=== PATIENT | female | born 1985 | race Two or more races ===

== ENCOUNTER 2021-08-16 17:00 | Emergency (ER) | payer MEDICAID ==
[~2021-08-16] VITALS: Ht 154.9 cm; Wt 63.5 kg
[2021-08-16 17:08] VITALS: BP 131/85
[2021-08-16] MEDS ORDERED: ACETAMINOPHEN 500 MG TAB PO ONE (21:00)
[2021-08-16] MEDS ORDERED: IBUPROFEN 800 MG TAB PO ONE (21:00)
[2021-08-16] MEDS ORDERED: BACLOFEN 10 MG TAB PO ONE (21:00)
== END 2021-08-16 21:06 | disposition home or self-care (01) ==
LOC: ER 17:00
DX: S13.9XXA Sprain of joints and ligaments of unspecified parts of neck, initial encounter (principal); M62.838 Other muscle spasm; X58.XXXA Exposure to other specified factors, initial encounter; Y93.89 Activity, other specified; Y92.89 Other specified places as the place of occurrence of the external cause; Y99.8 Other external cause status
CPT/HCPCS: 72040

== ENCOUNTER 2025-06-06 16:11 | Emergency (ER) | payer MEDICAID ==
[~2025-06-06] VITALS: Ht 167.6 cm; Wt 66.6 kg
[~2025-06-06 16:11] MED LIST: IBUP-1454 PO; LEVO750T8 PO; ZOFR4T PO
[2025-06-06] MEDS: HYDROcodone-ACET 10/325MG TAB PO ONE (17:42)
[2025-06-06] MEDS: KETOROLAC TROMETH 60MG/2ML VIAL IM ONE (17:42)
[2025-06-06 17:48] VITALS: BP 143/71; TEMP 97.8
[2025-06-06 17:49] VITALS: PULSE 61; RESP 18; O2SAT 99
--- NOTE | 2025-06-06 18:06 | DVH ---
EXAM: XY LUMBAR SPINE 3 VIEW HISTORY: Back pain COMPARISON: None TECHNIQUE: AP and lateral views of the lumbar spine and spot lateral of the lumbosacral junction were performed. FINDINGS: There are 5 [id number] lumbar type vertebral bodies. The pedicles are intact. Sacroiliac joint s are maintained. Vertebral body heights are maintained. Alignment is preserved. There is no acute f racture. IUD is partially imaged. Overlying soft tissues are intact. The visualized bowel gas is no nobstructed. IMPRESSION: 1. No acute fracture or traumatic malalignment.
[2025-06-06] MEDS ORDERED: CYCL-839 PO (18:36)
[2025-06-06] MEDS ORDERED: HYDR-4902 PO (18:36)
[2025-06-06] MEDS ORDERED: IBUP-1455 PO (18:36)
--- NOTE | 2025-06-06 18:37 | ED.PDOC ---
History of Present Illness HPI Comments This patient is a pleasant 40-year-old female who arrives to the ED today with complaints of left hip pain that radiates down her left lateral and anterior thigh for the past 7-10 days. Patient denies any definitive traumatic event. Patient denies any history of low back concerns or musculoskeletal concerns. Patient states the pain is sharp and radiates between her back and her hip and thigh. Patient denies any fever nausea or vomiting. Vital signs were stable. Chief Complaint: Lower Extremity Time Seen by MD: 16:13 Reviewed Notes: Nurses Notes Allergies: Coded Allergies: NO KNOWN ALLERGIES (Unverified , 08/16/21) Home Meds Active Scripts Ibuprofen (Ibuprofen) 600 Mg Tab, 1 TAB PO Q6HP PRN, #20 TAB Prov:TRENT JOSEPH [facility] 11/16/23 Ondansetron Odt 4MG Tab (ZOFRAN PO) 4 Mg Tb, 4 MG PO Q6HP PRN, #15 TAB ODT TAB-DISSOLVE IN MOUTH, THEN SWALLOW Prov:TRENT JOSEPH [facility] 11/16/23 Levofloxacin (Levaquin 750 mg) 750 Mg Tab, 1 TAB PO DAILY for 9 Days, #9 TAB Prov:TRENT JOSEPH [facility] 11/16/23 Information Source: Patient, Friend Mode of Arrival: Ambulatory Severity: Moderate Timing: Days Duration: Since onset Prehospital treatment: Pain Meds Past Medical History PAST MEDICAL HISTORY: Denies Surgical History: Denies all surgeries STAIN WIPER History: No Pertinent STAIN WIPER History Family History Family History: Reviewed,noncontributory to illness, No family hx of Cancer, No family hx of DM, No family hx of Heart nevaeh, No family hx of HTN, No family hx ofKidney nevaeh, No family hx of Liver nevaeh, No family hx of Lung nevaeh, No family hx of Stroke Social History Smoker: Non-Smoker Alcohol: Denies ETOH Use Drugs: Denies Drug Use Lives In: Home Constitutional: denies: chills, diaphoresis, fatigue, fever, malaise, sweats, weakness, others EENTM: denies: blurred vision, double vision, ear bleeding, ear discharge, ear drainage, ear pain, ear ringing, eye pain, eye redness, hearing loss, mouth pain, mouth swelling, nasal discharge, nose bleeding, nose congestion, nose pain, photophobia, tearing, throat pain, throat swelling, voice changes, others Respiratory: denies: cough, hemoptysis, orthopnea, SOB at rest, shortness of breath, SOB with excertion, stridor, wheezing, others Cardiovascular: denies: chest pain, dizzy spells, diaphoresis, Dyspnea on exertion, edema, irregular heart beat, left arm pain, lightheadedness, palpitations, PND, syncope, others Gastrointestinal: denies: abdomen distended, abdominal pain, blood streaked bowels, constipated, diarrhea, dysphagia, difficulty swallowing, hematemesis, melena, nausea, poor appetite, poor fluid intake, rectal bleeding, rectal pain, vomiting, others Genitourinary: denies: abnormal vagina bleeding, burning, dyspareunia, dysuria, flank pain, frequency, hematuria, incontinence, pain, , vagina discharge, urgency, others Neurological: denies: dizziness, fainting, headache, left sided numbness, left sided weakness, numbness, paresthesia, pre-existing deficit, right sided numbness, right sided weakness, seizure, speech problems, tingling, tremors, weakness, others Musculoskeletal: reports: others (Left-sided low back pain radiating into left hip and left thigh); denies: back pain, gout, joint pain, joint swelling, muscle pain, muscle stiffness, neck pain Integumetry: denies: bruises, change in color, change in hair/nails, dryness, laceration, lesions, lumps, rash, wounds, others Allergic/Immunocompromised: denies: Difficulty Healing, Frequent Infections, Hives, Itching, others Hematologic/Lymphatic: denies: anemia, blood clots, easy bleeding, easy bruising, swollen glands, others Endocrine: denies: excessive hunger, excessive sweating, excessive thirst, excessive urination, flushing, intolerance to cold, intolerance to heat, unexplained weight gain, unexplained weight loss, others Psychiatric: denies: anxiety, bipolar disorder, depression, hopeless, panic disorder, schizophrenia, sleepless, suicidal, others Physical Exam General Appearance: Moderate Distress (Due to back and leg pain concerns.), Normal HEENT: Normal ENT Inspection, Pharynx Normal, TMs Normal Neck: Full Range of Motion, Non-Tender, Normal, Normal Inspection Respiratory: Chest Non-Tender, Lungs Clear, No Accessory Muscle Use, No Respiratory Distress, Normal Breath Sounds Cardiovascular: No Edema, No JVD, No Murmur, No Gallop, Normal Peripheral Pulses, Regular Rate/Rhythm Breast Exam: Deferred Gastrointestinal: No Organomegaly, Non Tender, No Pulsatile Mass, Normal Bowel Sounds, Soft Genitalia: Deferred Pelvic: Deferred Rectal: Deferred Extremities: Other (Unremarkable evaluation of lower back, left hip and left thigh concerns. No edema or ecchymosis. No signs of trauma. Mild reduced range of motion and lower back.) Neurologic: Alert Cerebellar Function: NOT DONE Reflexes: NOT DONE Skin: Dry, Normal Color, Warm Lymphatic: No Adenopathy Was a procedure done? Was a procedure done?: No Differential Dx Considerations may include: Degenerative disc disease of the lumbar spine, lumbar radiculopathy, radiculopathy, muscle strain X-Ray, Labs, Meds, VS Vital Signs Date Time Temp Pulse Resp B/P (MAP) Pulse Ox O2 Delivery O2 Flow Rate FiO2 06/06/25 17:49 61 18 99 Room Air* 0 21 06/06/25 17:48 97.8 61 18 143/71 (95) 99 97.8 06/06/25 16:12 98.0 72 16 143/89 97 98.0 Current Medications Medications (Trade) Dose Ordered Sig/Elaina Route Start Time Stop Time Status Last Admin Ketorolac Tromethamine (Toradol Injection) 30 mg ONCE ONCE IM 06/06/25 16:45 06/06/25 16:46 DC 06/06/25 17:42 Acetaminophen/ Hydrocodone Bitart ([place]urmont 10/325MG Tab) 1 tab ONCE ONCE PO 06/06/25 16:45 06/06/25 16:46 DC 06/06/25 17:42 X-Ray, Labs, Meds, VS Comment All studies performed in the ED were evaluated by me personally. Imaging studies were unremarkable for any definitive degenerative disc disease. Based on patient presentation, the patient is suffering from a muscle strain or a radiculopathy. Advised patient utilize pain medications as needed as well as ice therapy. If symptoms continue, patient will need to follow up with the primary care provider for continued evaluation and management. Time of 1ST Reevaluation: 18:34 Reevaluation 1ST: Improved Consultation: PCP Patient Education/Counseling: Diagnosis, Treatment Family Education/Counseling: Diagnosis, Treatment SEPSIS Sepsis Screen Date sepsis recognized/suspect: Jun 06, 2025 Time Sepsis recognized/suspect: 1611 Recent Procedure: No On Antibiotic Therapy: No Respiratory Rate >20: No Heart Rate >90: No Temp<36 C (96.8 F) or >38.3 C: No SBP <90 or MAP <65 mmHG: No New Acute Mental Status Change: No Is the patient on CPAP, BIPAP,: No Physician Orders Lumbar Spine 3 View (06/06/25 16:34) Vital Signs Date Time Temp Pulse Resp B/P (MAP) Pulse Ox O2 Delivery O2 Flow Rate FiO2 06/06/25 17:49 61 18 99 Room Air* 0 21 06/06/25 17:48 97.8 61 18 143/71 (95) 99 97.8 06/06/25 16:12 98.0 72 16 143/89 97 98.0 Medications Medications Dose Ordered Sig/Elaina Route Start Time Stop Time Status Last Admin Dose Admin Acetaminophen/ Hydrocodone Bitart 1 tab ONCE ONCE PO 06/06/25 16:45 06/06/25 16:46 DC 06/06/25 17:42 Ketorolac Tromethamine 30 mg ONCE ONCE IM 06/06/25 16:45 06/06/25 16:46 DC 06/06/25 17:42 Departure 1 Departure Time of Disposition: 18:35 Impression: Primary Impression: Low back strain Additional Impression: Lumbar radiculopathy Disposition: HOME / SELF CARE / HOMELESS Condition: Stable Additional Instructions: Advised pain medication as needed for symptomatic relief as well as ice therapy. If symptoms continue for more than another few days, patient will need to follow up with the primary care provider for continued evaluation and management. e-Prescriptions Cyclobenzaprine Hcl (Cyclobenzaprine Hcl) 10 Mg Tab 10 MG PO Q8HP PRN, #12 TAB Prov: TRENT JOSEPH [facility] 06/06/25 Hydrocodone-Acetaminophen (Hydrocodone Bitartrate/AC 5-325 mg) 1 Tab Tab 1 TAB PO Q6HP PRN, #15 TAB Prov: TRENT JOSEPH [facility] 06/06/25 Ibuprofen Micronized (Ibuprofen) 800 Mg Tab 800 MG PO Q8HP PRN, #30 TAB Prov: TRENT JOSEPH [facility] 06/06/25 Discharged With: Self, Friend Critical Care Note Critical Care Time?: No Stability Stability form required: No Heart Score Heart Score: Heart Score Response (Comments) Value History N/A 0 EKG N/A 0 Age N/A 0 Risk Factors N/A 0 Troponin N/A 0 Total 0 TRENT JOSEPH PAC Jun 06, 2025 18:37
== END 2025-06-06 20:08 | disposition home or self-care (01) ==
LOC: ER 16:11
DX: S39.012A Strain of muscle, fascia and tendon of lower back, initial encounter (principal); M54.16 Radiculopathy, lumbar region; X58.XXXA Exposure to other specified factors, initial encounter; Y93.89 Activity, other specified; Y92.89 Other specified places as the place of occurrence of the external cause; Y99.8 Other external cause status
CPT/HCPCS: 72100; 96372; 99283; J1885

== ENCOUNTER 2025-06-30 15:26 | Inpatient (IN) | payer MEDICAID ==
[~2025-06-30] VITALS: Ht 157.5 cm; Wt 64.8 kg
[~2025-06-30 15:26] MED LIST changes: +CYCL-839 PO; +HYDR-4902 PO; +IBUP-1455 PO
--- NOTE | 2025-06-30 16:28 | ED.PDOC ---
GI ASSESSMENT HPI Comments This is a 40 year old female presenting to the ED with chief complaint of N/V. Patient reports that she has been experiencing a fever with associated nausea, vomiting, headache, and leg weakness since Saturday. Patient relays that she has been told in the past she has anemia. Patient denies any chest pain, SOB, dizziness, diarrhea, abdominal pain, melena, hematemesis, or vaginal bleeding. Chief Complaint: Nausea/Vomiting Time Seen by MD: 16:26 Reviewed Notes: Nurses Notes, Medications, Allergies Allergies: Coded Allergies: NO KNOWN ALLERGIES (Unverified , 08/16/21) Home Meds Active Scripts Cyclobenzaprine Hcl (Cyclobenzaprine Hcl) 10 Mg Tab, 10 MG PO Q8HP PRN, #12 TAB Prov:TRENT JOSEPH [facility] 06/06/25 Hydrocodone-Acetaminophen (Hydrocodone Bitartrate/AC 5-325 mg) 1 Tab Tab, 1 TAB PO Q6HP PRN, #15 TAB Prov:TRENT JOSEPH [facility] 06/06/25 Ibuprofen Micronized (Ibuprofen) 800 Mg Tab, 800 MG PO Q8HP PRN, #30 TAB Prov:TRENT JOSEPH [facility] 06/06/25 Ibuprofen (Ibuprofen) 600 Mg Tab, 1 TAB PO Q6HP PRN, #20 TAB Prov:TRENT JOSEPH [facility] 11/16/23 Ondansetron Odt 4MG Tab (ZOFRAN PO) 4 Mg Tb, 4 MG PO Q6HP PRN, #15 TAB ODT TAB-DISSOLVE IN MOUTH, THEN SWALLOW Prov:TRENT JOSEPH [facility] 11/16/23 Levofloxacin (Levaquin 750 mg) 750 Mg Tab, 1 TAB PO DAILY for 9 Days, #9 TAB Prov:TRENT JOSEPH [facility] 11/16/23 Information Source: Patient Mode of Arrival: Ambulatory Timing: Days Duration: Since onset Prehospital treatment: None Vomitus: Watery Stool: Normal Severity: Moderate Recent: None Recent Hx of: None Pain Location: None Modifying Factors: Nothing Associated sign and symptoms: Nausea, Vomiting, Fever Past Medical History PAST MEDICAL HISTORY: Denies Surgical History: Denies all surgeries APARTMENT ASSISTANT MANAGER History: No Pertinent APARTMENT ASSISTANT MANAGER History Family History Family History: Reviewed,noncontributory to illness, Family hx of Cancer Social History Smoker: Non-Smoker Alcohol: Denies ETOH Use Drugs: Denies Drug Use Lives In: Home Constitutional: reports: fever, weakness; denies: chills, diaphoresis, fatigue, malaise, sweats, others EENTM: denies: blurred vision, double vision, ear bleeding, ear discharge, ear drainage, ear pain, ear ringing, eye pain, eye redness, hearing loss, mouth pain, mouth swelling, nasal discharge, nose bleeding, nose congestion, nose pain, photophobia, tearing, throat pain, throat swelling, voice changes, others Respiratory: denies: cough, hemoptysis, orthopnea, SOB at rest, shortness of breath, SOB with excertion, stridor, wheezing, others Cardiovascular: denies: chest pain, dizzy spells, diaphoresis, Dyspnea on exertion, edema, irregular heart beat, left arm pain, lightheadedness, palpitations, PND, syncope, others Gastrointestinal: reports: nausea, vomiting; denies: abdomen distended, abdominal pain, blood streaked bowels, constipated, diarrhea, dysphagia, difficulty swallowing, hematemesis, melena, poor appetite, poor fluid intake, rectal bleeding, rectal pain, others Genitourinary: denies: abnormal vagina bleeding, burning, dyspareunia, dysuria, flank pain, frequency, hematuria, incontinence, pain, , vagina discharge, urgency, others Neurological: reports: headache; denies: dizziness, fainting, left sided numbness, left sided weakness, numbness, paresthesia, pre-existing deficit, right sided numbness, right sided weakness, seizure, speech problems, tingling, tremors, weakness, others Musculoskeletal: denies: back pain, gout, joint pain, joint swelling, muscle pain, muscle stiffness, neck pain, others Integumetry: denies: bruises, change in color, change in hair/nails, dryness, laceration, lesions, lumps, rash, wounds, others Allergic/Immunocompromised: denies: Difficulty Healing, Frequent Infections, Hives, Itching, others Hematologic/Lymphatic: denies: anemia, blood clots, easy bleeding, easy bruising, swollen glands, others Endocrine: denies: excessive hunger, excessive sweating, excessive thirst, excessive urination, flushing, intolerance to cold, intolerance to heat, unexplained weight gain, unexplained weight loss, others Psychiatric: denies: anxiety, bipolar disorder, depression, hopeless, panic disorder, schizophrenia, sleepless, suicidal, others All Other Systems: Reviewed and Negative Physical Exam General Appearance: Moderate Distress HEENT: Pale Conjuntivae (L), Pale Conjuntivae (R), Pharynx Normal, TMs Normal Neck: Full Range of Motion, Non-Tender, Normal, Normal Inspection Respiratory: Chest Non-Tender, Lungs Clear, No Accessory Muscle Use, No Respiratory Distress, Normal Breath Sounds Cardiovascular: No Edema, No JVD, No Murmur, No Gallop, Normal Peripheral Pulses, Regular Rate/Rhythm Breast Exam: Deferred Gastrointestinal: No Organomegaly, Non Tender, No Pulsatile Mass, Normal Bowel Sounds, Soft Genitalia: Deferred Pelvic: Deferred Rectal: Deferred Extremities: No calf tenderness, Normal capillary refill, No pedal edema Musculoskeletal : Apperance: Normal Neurologic: Alert, powerplant operator II-XII nml as Tested, Motor Weakness, Normal Affect, No rmal Mood, No Sensory Deficits Cerebellar Function: Normal Reflexes: Normal Skin: Dry, Pallor, Warm Lymphatic: No Adenopathy Was a procedure done? Was a procedure done?: No GI differential Dx Differential Diagnosis: Gastritis/PUD, Gastroenteritis, Viral, Anemia X-Ray, Labs, Meds, VS Vital Signs Date Time Temp Pulse Resp B/P (MAP) Pulse Ox O2 Delivery O2 Flow Rate FiO2 06/30/25 15:27 97.8 72 20 101/73 100 97.8 Lab Test 06/30/25 17:00 Range/Units White Blood Count 12.9 H 4.4-10.8 10^3/uL Red Blood Count 4.27 4.0-5.20 10^6/uL Hemoglobin 10.8 L 12.2-16.2 g/dL Hematocrit 32.9 L 36.0-46.0 % Mean Corpuscular Volume 76.9 L 80.0-100.0 fL Mean Corpuscular Hemoglobin 25.2 L 28.0-32.0 pg Mean Corpuscular Hemoglobin Concent 32.8 32.0-36.0 g/dL Red Cell Distribution Width 16.9 H 11.8-14.3 % Platelet Count 322 140-450 10^3/uL Mean Platelet Volume 8.6 6.9-10.8 fL Neutrophils (%) (Auto) 74.8 37.0-80.0 % Lymphocytes (%) (Auto) 7.8 L 10.0-50.0 % Monocytes (%) (Auto) 17.1 H 0.0-12.0 % Eosinophils (%) (Auto) 0.0 0.0-7.0 % Basophils (%) (Auto) 0.3 0.0-2.0 % Neutrophils # (Auto) 9.7 H 1.6-8.6 10 ^3/uL Lymphocytes # (Auto) 1.0 0.4-5.4 10 ^3/uL Monocytes # (Auto) 2.2 H 0-1.3 10 ^3/uL Eosinophils # (Auto) 0 0-0.8 10 ^3/uL Basophils # (Auto) 0 0-0.2 10 ^3/uL Nucleated Red Blood Cells 0.0 % Sodium Level 132 L 136-145 mmol/L Potassium Level 3.3 L 3.5-5.1 mmol/L Chloride Level 95 L 98-107 mmol/L Carbon Dioxide Level 27 20-31 mmol/L Anion Gap 10 5-15 Blood Urea Nitrogen 9 9-23 mg/dL Creatinine 0.88 0.550-1.02 mg/dL Glomerular Filtration Rate Calc 86 >90 mL/min BUN/Creatinine Ratio 10.2 10.0-20.0 Serum Glucose 117 H 74-106 mg/dL Lactic Acid Level 1.1 0.4-2.0 mmol/L Calcium Level 8.5 L 8.7-10.4 mg/dL Current Medications Medications (Trade) Dose Ordered Sig/Elaina Route Start Time Stop Time Status Last Admin Sodium Chloride 500 ml @ 500 mls/hr Q1H ONCE IV 06/30/25 16:30 06/30/25 17:29 DC 06/30/25 17:54 The patient had normal saline at a 500 cc bolus. The patient's lactic acid level is within normal limits The hemoglobin is 10.8 hematocrit 329 the rest of the CBC is within normal limits The chemistry panel shows hypokalemia and hyponatremia The patient is being admitted at this time At this time the patient is being admitted the hospitalist Images Reviewed?: Images reviewed and evaluated by me Time of 1ST Reevaluation: 19:28 Reevaluation 1ST: Unchanged Patient Education/Counseling: Diagnosis, Treatment, Prognosis Family Education/Counseling: No Family Present SEPSIS Sepsis Screen Date sepsis recognized/suspect: Jun 30, 2025 Time Sepsis recognized/suspect: 1529 Recent Procedure: No On Antibiotic Therapy: No Respiratory Rate >20: No Heart Rate >90: No Temp<36 C (96.8 F) or >38.3 C: No SBP <90 or MAP <65 mmHG: No New Acute Mental Status Change: No Is the patient on CPAP, BIPAP,: No Physician Orders Urinalysis (06/30/25 16:26) Heplock Iv (06/30/25 16:26) Technical Project Lead (06/30/25 16:) Blood Pressure (06/30/25 16:) Pulse Oximetry (06/30/25 16:) Electrocardigram (06/30/25 16:) Blood Culture (06/30/25 16:) Vital Signs Date Time Temp Pulse Resp B/P (MAP) Pulse Ox O2 Delivery O2 Flow Rate FiO2 06/30/25 15:27 97.8 72 20 101/73 100 97.8 Laboratory Tests Test 06/30/25 17:00 Lactic Acid Level 1.1 mmol/L (0.4-2.0) White Blood Count 12.9 10^3/uL (4.4-10.8) H Medications Medications Dose Ordered Sig/Elaina Route Start Time Stop Time Status Last Admin Dose Admin Sodium Chloride 500 ml @ 500 mls/hr Q1H ONCE IV 06/30/25 16:30 06/30/25 17:29 DC 06/30/25 17:54 Departure 1 Departure Time of Disposition: 19:29 Impression: Primary Impression: Autonomic dysfunction Additional Impressions: Generalized weakness Hyponatremia Hypokalemia Disposition: ADMITTED INPATIENT Admit to: Med Surg Condition: Fair Critical Care Note Critical Care Time?: No Stability Stability form required: Yes Unstable for transfer: ED Physician Assesment (Clinical assesment) Heart Score Heart Score: Heart Score Response (Comments) Value History N/A 0 EKG N/A 0 Age N/A 0 Risk Factors N/A 0 Troponin N/A 0 Total 0 I personally scribed for JERI HARMAN MD ([email or web address]) on 06/30/25 at 16:28. Electronically submitted by Jersey Singh ([email or web address]). JERI HARMAN MD Jun 30, 2025 16:28
[2025-06-30 17:42] LABS: Hematocrit 32.9 % (36.0-46.0); Hemoglobin 10.8 g/dL (12.2-16.2); Mean Corpuscular Hemoglobin 25.2 pg (28.0-32.0); Mean Corpuscular Volume 76.9 fL (80.0-100.0); Nucleated Red Blood Cells % 0.0 %
[2025-06-30 17:48] LABS: Anion Gap 10 (5-15); Carbon Dioxide 27 mmol/L (20-31)
[2025-06-30 17:53] LABS: BUN/Creatinine Ratio 10.2 (10.0-20.0); Blood Urea Nitrogen 9 mg/dL (9-23)
[2025-06-30] MEDS: SODIUM CHLORIDE 0.9% 500 ML IV ONE (17:54)
[2025-06-30 17:55] LABS: Calcium 8.5 mg/dL (8.7-10.4); Chloride 95 mmol/L (98-107); Glucose 117 mg/dL (74-106); Potassium 3.3 mmol/L (3.5-5.1); Sodium 132 mmol/L (136-145)
[2025-06-30] MEDS ORDERED: TEMAZEPAM 15 MG CAP PO PRN (20:15)
[2025-06-30] MEDS ORDERED: HYDROcodone-ACET 5/325MG TAB PO PRN (20:15)
[2025-06-30] MEDS ORDERED: ONDANSETRON HCL 4 MG/2 ML VIAL IV PRN (20:15)
--- NOTE | 2025-06-30 21:17 | DVH ---
EXAM: CT CT AB PEL WO CON-NO ORAL OR IV INDICATION: intract nausea and vomiting TECHNIQUE: Volumetric multidetector CT images of the abdomen and pelvis were obtained without contras t. All CT scans at this facility use dose modulation, iterative reconstruction, and/or weight based d osing when appropriate to reduce radiation dose to as low as reasonably achievable. COMPARISON: None FINDINGS: [LOWER CHEST]: The partially visualized lung bases are clear without a pleural effusion. The cardiac size is normal without pericardial effusion. [LIVER]: Normal hepatic size without suspicious focal lesion. [GALLBLADDER AND BILIARY TREE]: No cholelithiasis. [SPLEEN]: Unremarkable. [PANCREAS]: Unremarkable. [ADRENAL GLANDS]: Unremarkable [KIDNEYS]: No hydronephrosis. No nephroureterolithiasis. Perinephric edema of the right kidney edema of the inferior aspect right kidney/retroperitoneum [BLADDER]: Unremarkable for the degree distention. [REPRODUCTIVE ORGANS]: IUD in place [BOWEL/MESENTERY]: Stomach is normal. No CT evidence of bowel obstruction. [id number] stool bur den. [ASCITES]: Absent [LYMPHADENOPATHY]: No pathologically enlarged lymph nodes by CT size criteria [VASCULATURE]: No aneurysmal dilatation. [ABDOMINAL WALL]: Unremarkable. [MUSCULOSKELETAL]: No acute fracture or aggressive focal osseous lesion. 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 IMPRESSION: 1. No CT evidence of bowel obstruction. 2. [id number] stool burden. 3. Perinephric edema of the right kidney edema of the inferior aspect right kidney/retroperitoneum. 4. Correlate with urinalysis to exclude pyelonephritis. Alternatively correlate for recently passed s tone.
[2025-06-30 22:15] LABS: Urine Amorphous Crystal FEW /hpf (None Seen); Urine Protein, UAD TRACE (Negative)
[2025-06-30 22:28] LABS: Amphetamine Screen, Urine Neg (NEGATIVE); Barbiturate Scree,Urine Neg (NEGATIVE); Benzodiazephine Screen, Urine Neg (NEGATIVE); Cannabinoid Screen, Urine Neg (NEGATIVE); Cocaine Screen, Urine Neg (NEGATIVE); Opiate Scree,Urine Neg (NEGATIVE); Phencyclidine Screen, Urine Neg (NEGATIVE)
--- NOTE | 2025-06-30 22:29 | DVHHP2 ---
Admitting Diagnosis: Nausea and vomiting History of Present Illness 40 yo female patient with hx of anemia c/o nausea and vomiting with associated fever, PETERSON, and leg weakness x 5 days. While in the emergency department the patient was evaluated by the provider, As per provider: Labs, vital signs, and imagining monitored. Patient will be admitted for further evaluation and treatment. I discussed admission with the patient/family and is in agreement to treatment plan. Allergies: Coded Allergies: NO KNOWN ALLERGIES (Unverified , 08/16/21) Home Meds Active Scripts Cyclobenzaprine Hcl (Cyclobenzaprine Hcl) 10 Mg Tab, 10 MG PO Q8HP PRN, #12 TAB Prov:TRENT JOSEPH PAC 06/06/25 Hydrocodone-Acetaminophen (Hydrocodone Bitartrate/AC 5-325 mg) 1 Tab Tab, 1 TAB PO Q6HP PRN, #15 TAB Prov:TRENT JOSEPH PAC 06/06/25 Ibuprofen Micronized (Ibuprofen) 800 Mg Tab, 800 MG PO Q8HP PRN, #30 TAB Prov:TRENT JOSEPH PAC 06/06/25 Ibuprofen (Ibuprofen) 600 Mg Tab, 1 TAB PO Q6HP PRN, #20 TAB Prov:TRENT JOSEPH PAC 11/16/23 Ondansetron Odt 4MG Tab (ZOFRAN PO) 4 Mg Tb, 4 MG PO Q6HP PRN, #15 TAB ODT TAB-DISSOLVE IN MOUTH, THEN SWALLOW Prov:TRENT JOSEPH PAC 11/16/23 Levofloxacin (Levaquin 750 mg) 750 Mg Tab, 1 TAB PO DAILY for 9 Days, #9 TAB Prov:TRENT JOSEPH PAC 11/16/23 Current Medications Current Medications Medications (Trade) Dose Ordered Sig/Elaina Route PRN Reason Start Time Stop Time Status Last Admin Sodium Chloride 1,000 ml @ 120 mls/hr Q8H20M IV 06/30/25 20:15 UNV Acetaminophen/ Hydrocodone Bitart ([place] 5/325MG Tab) 1 tab Q4HP PRN PO MODERATE PAIN (4-6 PAIN SCALE) 06/30/25 20:15 UNV Temazepam (Restoril) 15 mg QHSP PRN PO FOR INSOMNIA 06/30/25 20:15 UNV Ondansetron HCl (Zofran) 4 mg Q4HP PRN IV NAUSEA / VOMITING 06/30/25 20:15 UNV Acetaminophen (Tylenol Tablet) 650 mg Q6HP PRN PO PAIN SCALE 1-3 OR TEMP>100.4 06/30/25 20:15 UNV Ceftriaxone Sodium 50 ml @ 100 mls/hr DAILY IV 06/30/25 20:15 UNV Review of Systems Constitutional: denies chills, denies fever, denies malaise Eyes: denies eye pain, denies vision change ENT: denies ear pain, denies headache, denies nasal congestion, denies painful swallowing, denies voice change Cardiovascular: denies chest pain, denies edema, denies orthopnea, denies palpitations, denies paroxysmal nocturnal dyspnea Respiratory: denies cough, denies shortness of breath Gastrointestinal: denies constipation, denies diarrhea, denies nausea, denies vomiting Genitourinary: denies dysuria, denies frequent urination, denies urethral discharge Musculoskeletal: denies back pain, denies joint pain, denies muscle pain Skin: denies bruising, denies itching, denies rash Neurological: denies focal weakness, denies headache, denies sensory changes Psychiatric: denies anxiety, denies depression Endocrine: denies polydipsia, denies polyuria Hematologic/Lymphatic: denies easy bleeding, denies easy bruising, denies enlarged lymph nodes Allergic/Immunologic: denies allergy, denies hives Vital Signs Vital Signs Date Time Temp Pulse Resp B/P (MAP) Pulse Ox O2 Delivery O2 Flow Rate FiO2 06/30/25 15:27 97.8 72 20 101/73 100 97.8 Physical Exam General Appearance: alert, no distress HEENT: EOMI, PERRLA, normal external inspect of ears, no icterus, no nasal drainage Neck: no carotid bruit, no jugular venous distention (JVD), no lymphadenopathy Chest: normal thorax Respiratory: clear to auscultation, normal air movement Cardiovascular: regular rate and rhythm, no diastolic murmur, no jugular venous distention (JVD), no rub, no systolic murmur Abdominal: soft, no hepatomegaly, no mass, no splenomegaly, no tenderness Genitourinary: grossly normal external Musculoskeletal: no joint tenderness, no swelling Extremities: normal pulses, no calf tenderness, no clubbing, no cyanosis, no edema Skin: no bruising, no jaundice, no rash Neurological: alert, No focal deficit SEPSIS Sepsis Screen Date sepsis recognized/suspect: Jun 30, 2025 Time Sepsis recognized/suspect: 1528 Recent Procedure: No On Antibiotic Therapy: No Respiratory Rate >20: No Heart Rate >90: No Temp<36 C (96.8 F) or >38.3 C: No SBP <90 or MAP <65 mmHG: No New Acute Mental Status Change: No Is the patient on CPAP, BIPAP,: No Physician Orders Heplock Iv (06/30/25 16:) Production Solderer (06/30/25:) Blood Pressure (06/30/25:) Pulse Oximetry (06/30/25) Electrocardigram (06/30/25:) Blood Culture (06/30/25) Admit (06/30/25 20:02) Code Status (06/30/25 20:02) Sodium Chloride 0.9% (06/30/25 20:15) Hydrocodone-Acet 5/325mg Tab ([place] 5/32 (06/30/25 20:15) Temazepam (Restoril) (06/30/25 20:15) Ondansetron Hcl (Zofran) (06/30/25 20:15) Complete Blood Count (07/01/25 04:00) Comprehensive Metabolic Panel (07/01/25 04:00) Condition: Fair (06/30/25 20:02) Acetaminophen Tablet (Tylenol Tablet) (06/30/25 20:15) Sequential Compression Device (06/30/25 ) Ct Ab Pel Wo Con-No Oral Or Iv (06/30/25 20:02) Drug Screen (06/30/25 20:02) Ceftriaxone 1gm/50ml (Rocephin) (06/30/25 20:15) Vital Signs Date Time Temp Pulse Resp B/P (MAP) Pulse Ox O2 Delivery O2 Flow Rate FiO2 06/30/25 15:27 97.8 72 20 101/73 100 97.8 Laboratory Tests Test 06/30/25 17:00 Lactic Acid Level 1.1 mmol/L (0.4-2.0) White Blood Count 12.9 10^3/uL (4.4-10.8) H Medications Medications Dose Ordered Sig/Elaina Route Start Time Stop Time Status Last Admin Dose Admin Sodium Chloride 500 ml @ 500 mls/hr Q1H ONCE IV 06/30/25 16:30 06/30/25 17:29 DC 06/30/25 17:54 Results Labs Test 06/30/25 21:25 06/30/25 17:00 Range/Units Urine Color Light-yellow Yellow Urine Clarity Turbid H Clear Urine pH 6.0 5.0-9.0 Urine Specific [place] 1.010 1.001-1.035 Urine Protein Trace H Negative Urine Ketones 1+ H Negative Urine Blood 2+ H Negative /uL Urine Nitrite Negative Negative Urine Bilirubin Negative Negative Urine Urobilinogen Normal Negative mg/dL Urine Leukocyte Esterase Trace Negative /uL Urine RBC 2 0 - 4 /hpf Urine Microscopic WBC 5 0-5 /HPF Urine Squamous Epithelial Cells Few <5 /hpf Urine Amorphous Crystals Few None Seen /hpf Urine Bacteria Few H None Seen /hpf Urine Glucose Normal Normal mg/dL White Blood Count 12.9 H 4.4-10.8 10^3/uL Red Blood Count 4.27 4.0-5.20 10^6/uL Hemoglobin 10.8 L 12.2-16.2 g/dL Hematocrit 32.9 L 36.0-46.0 % Mean Corpuscular Volume 76.9 L 80.0-100.0 fL Mean Corpuscular Hemoglobin 25.2 L 28.0-32.0 pg Mean Corpuscular Hemoglobin Concent 32.8 32.0-36.0 g/dL Red Cell Distribution Width 16.9 H 11.8-14.3 % Platelet Count 322 140-450 10^3/uL Mean Platelet Volume 8.6 6.9-10.8 fL Neutrophils (%) (Auto) 74.8 37.0-80.0 % Lymphocytes (%) (Auto) 7.8 L 10.0-50.0 % Monocytes (%) (Auto) 17.1 H 0.0-12.0 % Eosinophils (%) (Auto) 0.0 0.0-7.0 % Basophils (%) (Auto) 0.3 0.0-2.0 % Neutrophils # (Auto) 9.7 H 1.6-8.6 10 ^3/uL Lymphocytes # (Auto) 1.0 0.4-5.4 10 ^3/uL Monocytes # (Auto) 2.2 H 0-1.3 10 ^3/uL Eosinophils # (Auto) 0 0-0.8 10 ^3/uL Basophils # (Auto) 0 0-0.2 10 ^3/uL Nucleated Red Blood Cells 0.0 % Sodium Level 132 L 136-145 mmol/L Potassium Level 3.3 L 3.5-5.1 mmol/L Chloride Level 95 L 98-107 mmol/L Carbon Dioxide Level 27 20-31 mmol/L Anion Gap 10 5-15 Blood Urea Nitrogen 9 9-23 mg/dL Creatinine 0.88 0.550-1.02 mg/dL Glomerular Filtration Rate Calc 86 >90 mL/min BUN/Creatinine Ratio 10.2 10.0-20.0 Serum Glucose 117 H 74-106 mg/dL Lactic Acid Level 1.1 0.4-2.0 mmol/L Calcium Level 8.5 L 8.7-10.4 mg/dL Beta HCG, Quantitative 0.5 L 1.5-4.2 mIU/mL Plan 1. Generalized weakness related to nausea and vomiting Monitor, IV fluids, antiemetics 2. Hyponatremia Monitor, replace electrolytes 3. Hypokalemia Monitor, replace electrolytes, IV fluids 4. Leukocytosis Monitor, IV abx, PPI, SCD, send urinalysis Plan discussed with: Patient, Other SHERRIE MARIANO PROPERTY MANAGEMENT ASSISTANT Jun 30, 2025 22:29
[2025-07-01 02:10] VITALS: BP 106/70; PULSE 92; RESP 16; TEMP 99.5; O2SAT 98
[2025-07-01] MEDS: SODIUM CHLORIDE 0.9% 1,000 ML IV SCH (03:08)
[2025-07-01 03:38] VITALS: BP 106/70; PULSE 92; RESP 16; TEMP 99.5; O2SAT 98
[2025-07-01 04:32] LABS: Hematocrit 30.5 % (36.0-46.0); Hemoglobin 10.1 g/dL (12.2-16.2); Mean Corpuscular Hemoglobin 25.0 pg (28.0-32.0); Mean Corpuscular Volume 75.7 fL (80.0-100.0); Nucleated Red Blood Cells % 0.0 %
[2025-07-01 05:00] VITALS: BP 108/71; PULSE 99; RESP 18; TEMP 99.9; O2SAT 99
[2025-07-01 05:00] LABS: Alanine Aminotransferase 18 U/L (7-40); Albumin 4.2 g/dL (3.2-4.8); Alkaline Phosphatase 76 U/L (46-116); Anion Gap 10 (5-15); BUN/Creatinine Ratio 15.9 (10.0-20.0); Bilirubin, Total 0.4 mg/dL (0.2-1.0); Blood Urea Nitrogen 11 mg/dL (9-23); Carbon Dioxide 28 mmol/L (20-31); Glucose 101 mg/dL (74-106); Total Protein 7.5 g/dL (5.7-8.2)
[2025-07-01 05:04] LABS: Calcium 8.6 mg/dL (8.7-10.4); Chloride 96 mmol/L (98-107); Potassium 3.3 mmol/L (3.5-5.1); Sodium 134 mmol/L (136-145)
[2025-07-01] MEDS: ACETAMINOPHEN 325 MG TAB PO PRN (06:14)
[2025-07-01 09:00] VITALS: BP 96/58; PULSE 71; RESP 20; TEMP 98.1; O2SAT 96
[2025-07-01 13:00] VITALS: BP 112/71; PULSE 74; RESP 20; TEMP 97.7; O2SAT 100
--- NOTE | 2025-07-01 16:03 | DVHPN2 ---
Progress Note - Dictate Date Seen: Jul 01, 2025 Medical Necessity Reason Pt with a Central, PICC or Fol: No vital signs Vital Sign Date Time Temp Pulse Resp B/P (MAP) Pulse Ox O2 Delivery O2 Flow Rate FiO2 07/01/25 13:00 97.7 74 20 112/71 (85) 100 97.7 Total Intake and Output 06/30/25 06/30/25 07/01/25 15:00 23:00 07:00 Intake Total 500 ml Balance 500 ml medications Current Medications Medications Dose Ordered Sig/Elaina Route Start Time Stop Time Status Last Admin Dose Admin Sodium Chloride 1,000 ml @ 120 mls/hr Q8H20M IV 06/30/25 20:15 07/01/25 03:08 120 MLS/HR Acetaminophen/ Hydrocodone Bitart 1 tab Q4HP PRN PO 06/30/25 20:15 Temazepam 15 mg QHSP PRN PO 06/30/25 20:15 Ondansetron HCl 4 mg Q4HP PRN IV 06/30/25 20:15 Acetaminophen 650 mg Q6HP PRN PO 06/30/25 20:15 07/01/25 06:14 650 MG Ceftriaxone Sodium 50 ml @ 100 mls/hr DAILY IV 06/30/25 20:15 07/01/25 11:28 100 MLS/HR objective General Appearance: alert, no distress HEENT: EOMI, PERRLA, normal external inspect of ears, no icterus, no nasal drainage Neck: no carotid bruit, no jugular venous distention (JVD), no lymphadenopathy Chest: normal thorax Respiratory: clear to auscultation, normal air movement Cardiovascular: regular rate and rhythm, no diastolic murmur, no jugular venous distention (JVD), no rub, no systolic murmur Abdominal: soft, no hepatomegaly, no mass, no splenomegaly, no tenderness Musculoskeletal: no joint tenderness, no swelling Extremities: normal pulses, no calf tenderness, no clubbing, no cyanosis, no edema Skin: no bruising, no jaundice, no rash Neurological: alert, No focal deficit laboratory and microbiology Laboratory Tests 07/01/25 03:30 Test 07/01/25 03:30 Range/Units Serum Glucose 101 74-106 mg/dL Problem List 1. Generalized weakness related to nausea and vomiting Monitor, IV fluids, antiemetics 2. Hyponatremia Monitor, replace electrolytes 3. Hypokalemia Monitor, replace electrolytes, IV fluids 4. Leukocytosis Monitor, IV abx, PPI, SCD, send urinalysis Assessment/Plan Subjective Patient is awake and alert. Objective Patient was admitted for generalized weakness and hyponatremia. Hyponatremia most likely related to excessive nausea and vomiting. Patient states whenever she eats she throws up. Urine drug screen is negative. CT imaging does show some swelling to her right kidney, most likely has a UTI. Plan Broaden antibiotics from Rocephin to Zosyn. Obtain urine culture. Obtain chest x-ray. Patient still has persistent leukocytosis. Plan discussed with: Patient, Other SHERRIE MARIANO NP Jul 01, 2025 16:03
[2025-07-01] MEDS: POTASSIUM CHL 20 Meq TABLET PO ONE (18:24)
[2025-07-01] MEDS: PIPERACILLIN-TAZOB 3.375GM 100 ML IV SCH (18:25)
[2025-07-01 18:44] VITALS: BP 113/78; PULSE 74; RESP 18; TEMP 99.5; O2SAT 99
--- NOTE | 2025-07-01 19:31 | DVH ---
CHEST RADIOGRAPH Indication: r/o infection Technique: Single frontal view of the chest was obtained Comparison: None FINDINGS: Lines and Tubes: None Lungs: No focal consolidation. Pleura: No effusion. No pneumothorax. Cardiomediastinal contours: Unremarkable Bones: No acute osseous abnormality. IMPRESSION: No acute cardiopulmonary disease.
[2025-07-02] VITALS (8 sets, daily range): BP systolic 103–117; BP diastolic 73–75; PULSE 74–83; RESP 17–18; TEMP 97–98; O2SAT 96–97
--- NOTE | 2025-07-02 15:01 | DVHPN2 ---
Progress Note Date Seen: Jul 02, 2025 Medical Necessity Reason Pt with a Central, PICC or Fol: No Subjective Review of Systems: CVS:Normal, RESPIRATORY:Normal, GI:Normal, NEURO:Normal Objective vital signs Vital Sign Date Time Temp Pulse Resp B/P (MAP) Pulse Ox O2 Delivery O2 Flow Rate FiO2 07/02/25 13:00 98.0 75 18 117/73 (88) 97 98.0 07/01/25 22:21 Room Air* 0 21 Total Intake and Output 07/01/25 07/01/25 07/02/25 15:00 23:00 07:00 Intake Total 100 ml 900 ml Balance 100 ml 900 ml medications Current Medications Medications Dose Ordered Sig/Elaina Route Start Time Stop Time Status Last Admin Dose Admin Sodium Chloride 1,000 ml @ 120 mls/hr Q8H20M IV 06/30/25 20:15 07/02/25 01:09 120 MLS/HR Acetaminophen/ Hydrocodone Bitart 1 tab Q4HP PRN PO 06/30/25 20:15 Temazepam 15 mg QHSP PRN PO 06/30/25 20:15 Ondansetron HCl 4 mg Q4HP PRN IV 06/30/25 20:15 Acetaminophen 650 mg Q6HP PRN PO 06/30/25 20:15 07/01/25 06:14 650 MG Piperacillin Sod/ Tazobactam Sod 100 ml @ 25 mls/hr Q8H IV 07/01/25 18:00 07/02/25 10:37 25 MLS/HR Examination: GENERAL:Normal, LUNGS:Normal, CVS:Normal, ABDOMEN:Normal, SKIN:Normal, NEURO:Normal laboratory and microbiology Laboratory Tests 07/01/25 03:30 Test 07/01/25 03:30 Range/Units Serum Glucose 101 74-106 mg/dL Microbiology Date/Time Source Procedure Growth Status 06/30/25 21:25 Voided Urine Urine Culture - Preliminary Resulted 06/30/25 17:00 Blood Blood Culture - Preliminary NO GROWTH AFTER 24 HOURS OF INCUBATION. Resulted Labs and/or images reviewed: Labs reviewed by me, Image(s) reviewed by me Problem List/Assessment/Plan Problem List/Assessment/Plan Tamica Miranda was admitted with generalized weakness related to nausea and vomiting. Acute Cystitis Assessment: Patient likely has acute cystitis based on clinical presentation and CT abdomen pelvis showing perinephritic edema of the right kidney. Urine culture is pending to confirm diagnosis and guide antibiotic therapy. Plan: - IV antibiotics for leukocytosis - Await urine culture results - Possible discharge tomorrow pending culture results Hyponatremia Assessment: Patient most likely has hyponatremia related to excessive nausea and vomiting, contributing to generalized weakness and current clinical presentation. Plan: - Replace electrolytes - Continue IV fluids - Anti-emetics for symptom management Hypokalemia Assessment: Electrolyte imbalance requiring correction. Plan: - Replace potassium Nausea and Vomiting Assessment: Patient experiencing nausea and vomiting contributing to dehydration and electrolyte imbalances. Patient reports feeling better and is receiving treatment. Plan: - IV fluids Plan discussed with: Patient My Orders My Orders Orders - ARISTEO KEATING Procedure Category Date Status Time Complete Blood Count LAB 07/02/25 Logged 14:55 Basic Metabolic Panel LAB 07/02/25 Logged 14:55 Date of Service: Jul 02, 2025 Billing Provider: NIDHI VALIENTE MD Common Visit Codes: [id number] INP/OBS CARE (MOD) ARISTEO KEATING Jul 02, 2025 15:01
[2025-07-02 17:09] LABS: Hematocrit 28.8 % (36.0-46.0); Hemoglobin 9.4 g/dL (12.2-16.2); Mean Corpuscular Hemoglobin 25.3 pg (28.0-32.0)
[2025-07-02 17:11] LABS: Mean Corpuscular Volume 77.4 fL (80.0-100.0)
[2025-07-02 17:19] LABS: Anion Gap 8 (5-15); Carbon Dioxide 31 mmol/L (20-31); Chloride 103 mmol/L (98-107); Potassium 3.9 mmol/L (3.5-5.1); Sodium 142 mmol/L (136-145)
[2025-07-02 17:25] LABS: BUN/Creatinine Ratio 12.3 (10.0-20.0); Blood Urea Nitrogen 10 mg/dL (9-23); Glucose 90 mg/dL (74-106)
[2025-07-02 17:26] LABS: Calcium 8.4 mg/dL (8.7-10.4)
[2025-07-02 18:55] LABS: Total Cells Counted 100.0 (100)
[2025-07-03 01:00] VITALS: BP 118/77; PULSE 78; RESP 16; TEMP 97.7; O2SAT 98
[2025-07-03 05:00] VITALS: BP 133/84; PULSE 79; RESP 16; TEMP 97.7; O2SAT 97
[2025-07-03 09:00] VITALS: BP 116/74; PULSE 62; RESP 16; TEMP 98.1; O2SAT 96
[2025-07-03 11:58] LABS: Hemoglobin 9.3 g/dL (12.2-16.2); Nucleated Red Blood Cells % 0.1 %
[2025-07-03 11:59] LABS: Hematocrit 28.2 % (36.0-46.0); Mean Corpuscular Hemoglobin 25.6 pg (28.0-32.0); Mean Corpuscular Volume 77.7 fL (80.0-100.0)
[2025-07-03 12:13] LABS: Alanine Aminotransferase 21 U/L (7-40); Albumin 3.7 g/dL (3.2-4.8); Alkaline Phosphatase 61 U/L (46-116); Anion Gap 7 (5-15); Carbon Dioxide 27 mmol/L (20-31); Potassium 3.7 mmol/L (3.5-5.1); Sodium 142 mmol/L (136-145); Total Protein 6.7 g/dL (5.7-8.2)
[2025-07-03 12:14] LABS: BUN/Creatinine Ratio 6.8 (10.0-20.0); Bilirubin, Total 0.3 mg/dL (0.2-1.0); Blood Urea Nitrogen < 5 mg/dL (9-23); Calcium 8.5 mg/dL (8.7-10.4); Chloride 108 mmol/L (98-107); Glucose 118 mg/dL (74-106)
[2025-07-03] MEDS ORDERED: CIPR-173 PO (12:36)
[2025-07-03 12:45] VITALS: BP 112/76; PULSE 79; RESP 17; TEMP 97.8; O2SAT 97
[2025-07-03 13:02] VITALS: BP 112/76; PULSE 79; RESP 17; TEMP 97.8; O2SAT 97
--- NOTE | 2025-07-03 17:47 | DVHDS2 ---
Discharge Summary Date of Admission Jun 30, 2025 at 20:02 Date of Discharge: Jul 03, 2025 Labs/Diagnostic Data: Laboratory Results Test 07/03/25 11:21 07/02/25 16:36 06/30/25 21:25 06/30/25 17:00 White Blood Count 3.8 10^3/uL (4.4-10.8) Red Blood Count 3.63 10^6/uL (4.0-5.20) Hemoglobin 9.3 g/dL (12.2-16.2) Hematocrit 28.2 % (36.0-46.0) Mean Corpuscular Volume 77.7 fL (80.0-100.0) Mean Corpuscular Hemoglobin 25.6 pg (28.0-32.0) Mean Corpuscular Hemoglobin Concent 33.0 g/dL (32.0-36.0) Red Cell Distribution Width 16.8 % (11.8-14.3) Platelet Count 356 10^3/uL (140-450) Mean Platelet Volume 8.1 fL (6.9-10.8) Neutrophils (%) (Auto) 47.0 % (37.0-80.0) Lymphocytes (%) (Auto) 30.7 % (10.0-50.0) Monocytes (%) (Auto) 17.8 % (0.0-12.0) Eosinophils (%) (Auto) 3.4 % (0.0-7.0) Basophils (%) (Auto) 1.1 % (0.0-2.0) Neutrophils # (Auto) 1.8 10 ^3/uL (1.6-8.6) Lymphocytes # (Auto) 1.2 10 ^3/uL (0.4-5.4) Monocytes # (Auto) 0.7 10 ^3/uL (0-1.3) Eosinophils # (Auto) 0.1 10 ^3/uL (0-0.8) Basophils # (Auto) 0 10 ^3/uL (0-0.2) Nucleated Red Blood Cells 0.1 % Sodium Level 142 mmol/L (136-145) Potassium Level 3.7 mmol/L (3.5-5.1) Chloride Level 108 mmol/L (98-107) Carbon Dioxide Level 27 mmol/L (20-31) Anion Gap 7 (5-15) Blood Urea Nitrogen < 5 mg/dL (9-23) Creatinine 0.74 mg/dL (0.550-1.02) Glomerular Filtration Rate Calc 105 mL/min (>90) BUN/Creatinine Ratio 6.8 (10.0-20.0) Serum Glucose 118 mg/dL (74-106) Calcium Level 8.5 mg/dL (8.7-10.4) Total Bilirubin 0.3 mg/dL (0.2-1.0) Aspartate Amino Transferase (AST) 17 U/L (13-40) Alanine Aminotransferase (ALT) 21 U/L (7-40) Alkaline Phosphatase 61 U/L (46-116) Total Protein 6.7 g/dL (5.7-8.2) Albumin 3.7 g/dL (3.2-4.8) Differential Total Cells Counted 100.0 (100) Neutrophils % (Manual) 55 (37.0-80.0) Band Neutrophils % (Manual) 1 Lymphocytes % (Manual) 23 (10.0-50.0) Monocytes % (Manual) 20 (0-12) Eosinophils % (Manual) 1 (0-7) Basophils % (Manual) 0 (0.0-2.0) Metamyelocytes % (manual) 0 Myelocytes % (Manual) 0 Promyelocytes % (Manual) 0 Blast Cells % (Manual) 0 Reactive Lymphocytes 0 Platelet Estimate Adequate Urine Color Light-yellow (Yellow) Urine Clarity Turbid (Clear) Urine pH 6.0 (5.0-9.0) Urine Specific [place] 1.010 (1.001-1.035) Urine Protein Trace (Negative) Urine Ketones 1+ (Negative) Urine Blood 2+ /uL (Negative) Urine Nitrite Negative (Negative) Urine Bilirubin Negative (Negative) Urine Urobilinogen Normal mg/dL (Negative) Urine Leukocyte Esterase Trace /uL (Negative) Urine RBC 2 /hpf (0 - 4) Urine Microscopic WBC 5 /HPF (0-5) Urine Squamous Epithelial Cells Few /hpf (<5) Urine Amorphous Crystals Few /hpf (None Seen) Urine Bacteria Few /hpf (None Seen) Urine Glucose Normal mg/dL (Normal) Urine Opiates Screen Neg (NEGATIVE) Urine Fentanyl Screen Neg (NEGATIVE) Urine Barbiturates Screen Neg (NEGATIVE) Urine Phencyclidine Screen Neg (NEGATIVE) Urine Amphetamines Screen Neg (NEGATIVE) Urine Benzodiazepines Screen Neg (NEGATIVE) Urine Cocaine Screen Neg (NEGATIVE) Urine Cannabinoids Screen Neg (NEGATIVE) Lactic Acid Level 1.1 mmol/L (0.4-2.0) Beta HCG, Quantitative 0.5 mIU/mL (1.5-4.2) Other Laboratory Tests 07/03/25 11:21 Brief Hx & Hospital Course: Patient was admitted for acute cystitis she received IV antibiotics during hospital stay. Urine culture showed mixed colony. We will send home patient on Cipro 500 b.i.d. x7 days. Patient did report feeling better upon discharge. Condition at Discharge: Fair Final Diagnosis/Problems List Acute Cystitis Hyponatremia Hypokalemia Discharge Disposition: Home Discharge Instruct/Medications Diet: Cardiac 2g Na,low cholest Activity: No Restrictions, As Tolerated Follow Up/Referral: PCP within 1 week Scheduled Ciprofloxacin Hcl (Cipro), 1 TAB PO BID Levofloxacin (Levaquin 750 mg), 1 TAB PO DAILY Scheduled PRN Cyclobenzaprine Hcl (Cyclobenzaprine Hcl), 10 MG PO Q8HP PRN Hydrocodone-Acetaminophen (Hydrocodone Bitartrate/AC 5-325 mg), 1 TAB PO Q6HP PRN Ibuprofen (Ibuprofen), 1 TAB PO Q6HP PRN Ibuprofen Micronized (Ibuprofen), 800 MG PO Q8HP PRN Ondansetron Odt 4MG Tab (Zofran Po), 4 MG PO Q6HP PRN Discharge Statement: "Patient was advised to return to the ER or call 911 if any headaches, dizziness, shortness of breath, chest pain, abdominal pain, bleeding, fevers, or worsening of medical condition. Patient was counseled about treatment plan, medications, possible side effects, patientverbalized understanding. All questions were answered to the best of my ability. This discharge took greater then 30 minutes in planning, reviewing documentation, counseling the patient, and discussing with other team members." ASSESSMENT ASSESSMENT Assessment Acute Cystitis Hyponatremia Hypokalemia ARISTEO KEATING Jul 03, 2025 17:47
== END 2025-07-03 15:00 | disposition home or self-care (01) | DRG 463 ==
LOC: ER 15:26 → OVERFLOW 20:02 → WEST WING 07-01 21:07
PROVIDERS: ADMIT Nurse Practitioner; ATTEND Nurse Practitioner
DX: N30.00 Acute cystitis without hematuria (principal); E87.1 Hypo-osmolality and hyponatremia; D72.829 Elevated white blood cell count, unspecified; E87.6 Hypokalemia; E86.0 Dehydration
CPT/HCPCS: 36415; 71045; 74176; 80048; 80053; 80307; 81001; 83605; 84702; 85007; 85025; 85027; 86850; 86900; 86901; 87040; 87086; 96360; G0378; J2543